=== PATIENT | male | born 1990 | race African-American/Black ===

== ENCOUNTER 2021-02-17 15:39 | Emergency (ER) | payer SELFPAY ==
[~2021-02-17] VITALS: Ht 177.8 cm; Wt 86.2 kg
[2021-02-17 15:47] VITALS: BP 125/72
[2021-02-17] MEDS ORDERED: IBUP-1955 PO (15:58)
[2021-02-17] MEDS ORDERED: KETOROLAC TROMETHAMINE INJ 60 MG/2 ML VIAL IM ONE (16:00)
[2021-02-17] MEDS ORDERED: KETOROLAC TROMETHAMINE INJ 30 MG/ML VIAL ONE (16:02)
--- NOTE | 2021-02-17 16:18 | NUR ---
Patient discharged to home in stable condition. Written and verbal after care instructions given. Patient verbalizes understanding of instruction.
== END 2021-02-17 16:19 | disposition home or self-care (01) ==
LOC: EDBD 15:55 → ER 15:55
DX: S39.012A Strain of muscle, fascia and tendon of lower back, initial encounter (principal); F17.200 Nicotine dependence, unspecified, uncomplicated; V49.49XA Driver injured in collision with other motor vehicles in traffic accident, initial encounter; Y93.89 Activity, other specified; Y92.413 State road as the place of occurrence of the external cause; Y99.8 Other external cause status
CPT/HCPCS: 96372; 99283; J1885